=== PATIENT | female | born 1955 | race Caucasian/White ===

== ENCOUNTER 2025-07-20 14:52 | Emergency (ER) | payer MEDICARE, MEDICAID, SELFPAY ==
[2025-07-20 15:02] VITALS: BP 154/89; PULSE 92; RESP 16; TEMP 36.2; O2SAT 98; BMI 30.8
[2025-07-20 15:05] VITALS: BP 154/89; PULSE 92; RESP 16; TEMP 36.2; O2SAT 98
--- NOTE | 2025-07-20 15:14 | ED_ITS ---
HPI - Abdominal Pain General Chief Complaint: Abdominal Pain Stated Complaint: ABD PAIN, BLOOD IN STOOL, D URINATING Time Seen by Provider: 07/20/25 14:58 Source: patient Mode of arrival: EMS Limitations: no limitations History of Present Illness ED Provider: HPI narrative: 69-year-old woman presenting from [facility] on multiple antipsychotic medications presenting with a urinary retention, also had bleeding from a hemorrhoid earlier today. States urinary retention started yesterday she was a we will to move her bladder earlier in the morning but then had more difficulty urinating no when she presented her bladder scan revealed retention to approximately 900 cc. Prior to that has had no dysuria fevers or chills. Related Data Allergies Allergy/AdvReac Type Severity Reaction Status Date / Time aspirin (ASA) Allergy Hives Verified 07/20/25 15:04 codeine Allergy Hives Verified 07/20/25 15:04 Review of Systems Constitutional: Reports as per HPI [facility] Social History Social History Smoked in Last 30 Days: No Use of substances other than those prescribed or required for medical reasons: No Advance Directives: No Advance Directives Information Provided: No Physical Exam ED Exam Exam: ?General: ??looks age appropriate ?CV: S1S2 ?Resp: ?No wheezing rales rhonchi no stridor moving air well Abd: ?Bowel sounds are present suprapubic distention MSK: FROM, strength 5/5 all extremities Skin: Warm, dry, intact, ?Neuro: ?Alert and oriented x3, moving upper and lower extremities symmetrically, no obvious facial asymmetry noted, cranial nerves 2-12 intact Vital Signs: Vital Signs - 24 hr 07/20/25 15:02 07/20/25 15:05 Temperature 97.2 F 97.2 F Pulse Rate 92 92 Respiratory Rate 16 16 Blood Pressure 154/89 H 154/89 H Pulse Oximetry 98 98 Oxygen Delivery Method Room Air Room Air BMI result Body Mass Index 30.8 Course Reevaluation(s) Reevaluation #1: Eric: This patient was signed out to me by the previous emergency physician. The patient is a 69-year-old woman who presents to the emergency room with the inability to empty her bladder. She was found to have urinary retention with 900 mL in her bladder. She was given a urinary catheter. The etiology for her urinary retention is most likely related to new psychiatric medications that has been started. She is currently staying at a [facility] respite facility for about 9 or 10 days. Apparently they started her on new psychiatric medications including olanzapine, haloperidol, and hydroxyzine. All of these medications could potentially predispose a person to urinary retention. Labs were done that show no sign of infection and no sign of kidney injury. The original plan has been to send the patient with a catheter in place but the patient does not wish to returned to this facility with a catheter in place. Additionally the patient feels that she has had a lot of discomfort with stooling and that she feels she is having an exacerbation of problems with hemorrhoids and she wanted to have her hemorrhoids examined. I examined the patient and she has several old hemorrhoids no obvious new acute hemorrhoids. The patient seems to have a somewhat hypertrophic anal sphincter. She did not have any significant tenderness. I do not think there is a acute hemorrhoid present I also do not think there is any perianal abscess present. I was able to do a digital rectal exam. The anal sphincters seems on the whole fairly thickened and hypertrophic and seems somewhat unusual to me. However I do not see any indication for acute intervention. I do not feel any masses within the rectal vault itself. Therefore ultimately the patient will be discharged to returned to her [facility] respite facility. Her discharge instructions indicate that her psychiatric medications should be reduced or eliminated to help restore normal bladder function. Additionally she will be referred to Urology for her urinary retention and General surgery for her hemorrhoidal/anal complaints. Time: 20:39 Medical Decision Making Medical Decision Making [facility] Narrative: 3:24 PM 07/20/2025 (Dr. Boby Edwards): Retaining urine we will need Quintana catheter placed, retention can be due to either infectious etiology or if urinalysis is negative for infection she is on olanzapine, Haldol, hydroxyzine all these medications can cause urinary retention, we will evaluate for electrolyte derangements, and AJ Differential Diagnosis Differential Diagnoses: The differential diagnosis associated with the presentation includes Admission/Observation Consideration of admission/observation: Escalation of care including admission/observation considered Lab Data [facility] Lab Attestation statement: I reviewed the patient's lab results. 07/20/25 15:28 07/20/25 15:28 Labs: Lab Results 07/20/25 07/20/25 Range/Units 15:17 15:28 WBC 9.8 (4.8-10.8) X10*3/uL RBC 5.13 (4.20-5.50) X10*6/uL Hgb 14.2 (12.0-16.0) g/dl Hct 43.7 (37.0-47.0) % MCV 85.2 (80.0-98.0) fL MCH 27.7 (27.0-33.0) pg MCHC 32.5 (31.0-35.0) g/dl RDW 12.7 (11.0-16.0) % Plt Count 184 (160-400) X10*3/uL MPV 9.2 L (9.4-12.3) fL Immature Gran % (Auto) 0.4 (0.0-0.4) % Neut % (Auto) 71.7 (45-73) % Lymph % (Auto) 21.4 (20-40) % Payette % (Auto) 5.0 (2-11) % Eos % (Auto) 1.1 (0-4) % Baso % (Auto) 0.4 (0-2) % Lymph # (Auto) 2.1 (1.2-4.9) X10*3/uL Payette # (Auto) 0.5 (0.1-1.2) X10*3/uL Eos # (Auto) 0.1 (0.0-0.4) X10*3/uL Baso # (Auto) 0.0 (0.0-0.2) X10*3/uL Abs Immat Gran (auto) 0.04 H (0.00-0.03) X10*3/uL Absolute Neuts (auto) 7.0 (2.0-8.3) x10*3/uL Absolute Nucleated RBC 0.000 (0.0-0.012) X10*3/uL Nucleated RBC % (auto) 0.0 (0.0-0.2) /100WBC Sodium 142 (135-145) mmol/L Potassium 4.5 (3.3-5.1) mmol/L Chloride 109 H (96-108) mmol/L Carbon Dioxide 26 (22-29) mmol/L Anion Gap 12 (12-20) BUN 14 (9-16) mg/dL Creatinine 1.12 (0.5-1.4) mg/dL Estim Creat Clear Calc 46.0 Estimated GFR 48 Random Glucose 128 H (60-115) mg/dL Calcium 9.4 (8.4-10.2) mg/dL Total Bilirubin 0.6 (0.0-1.0) mg/dL AST 23 (5-31) U/L ALT 26 (0-31) U/L Alkaline Phosphatase 85 (39-117) U/L Total Protein 6.9 (6.5-8.0) g/dL Albumin 4.7 (3.5-5.0) g/dL Urine Color Yellow Urine Appearance Clear Urine pH 5.5 (5.0-9.0) Ur Specific Crapo 1.010 (1.005-1.025) Urine Protein Negative (Neg-Trace) mg/dL Urine Glucose (UA) Negative (Negative) mg/dL Urine Ketones Trace (Negative) mg/dL Urine Blood Negative (Negative) Urine Nitrite Negative (Negative) Ur Leukocyte Esterase Negative (Negative) Discharge Plan Discharge Clinical Impression: Acute urinary retention, Hemorrhoids Patient Disposition: Home, Self-Care Instructions: Quintana Catheter Placement and Care (ED) Additional Instructions: You were found to be in urinary retention today. We suspect that this is probably a result of the medications you have recently been started on. These medications include hydroxyzine, haloperidol, and olanzapine. At this point our recommendation is that the medications be reduced or eliminated in hopes of restoring normal urinary function. Her bladder was drained but she does not wish to go to the facility with a urinary catheter in place. Her blood work is reassuring no kidney injury and no evidence for urinary tract infection Please follow up with the General surgery office for concern about hemorrhoids and also the urology office for further consideration of the urinary retention. Return to the emergency room if significantly worse. Referrals: [facility] General Surgeons [Provider Group, General Surgery] [facility] Urology Services [Provider Group, Urology] [facility] [Provider Group] [facility] [Outside] Print Language: Cuban
[2025-07-20 15:24] LABS: Appearance Urine Clear; Glucose Urine UA Negative (Negative); PH 5.5 (5.0-9.0); Specific Gravity - Urine 1.010 (1.005-1.025)
[2025-07-20 15:32] LABS: MANUAL DIFF FLAG NO
[2025-07-20 15:38] LABS: Hematocrit 43.7 % (37.0-47.0); Hemoglobin 14.2 g/dl (12.0-16.0); Imm Gran Abs Auto 0.04 X10*3/uL (0.00-0.03); Imm Gran Pct Auto 0.4 % (0.0-0.4); Lymphocytes Absolute Auto 2.1 X10*3/uL (1.2-4.9); Mean Corpuscular HGB Conc 32.5 g/dl (31.0-35.0); Mean Corpuscular Hemoglobin 27.7 pg (27.0-33.0); Mean Corpuscular Volume 85.2 fL (80.0-98.0); NRBC Abs Auto 0.000 X10*3/uL (0.0-0.012); NRBC Pct Auto 0.0 /100WBC (0.0-0.2); Platelet Count 184 X10*3/uL (160-400); Red Blood Count 5.13 X10*6/uL (4.20-5.50); White Blood Count 9.8 X10*3/uL (4.8-10.8)
[2025-07-20 15:51] LABS: Alanine Aminotransferase 26 U/L (0-31); Albumin Level 4.7 g/dL (3.5-5.0); Alkaline Phosphatase 85 U/L (39-117); Anion Gap 12 (12-20); Aspartate Amino Transferase 23 U/L (5-31); Blood Urea Nitrogen 14 mg/dL (9-16); Calcium 9.4 mg/dL (8.4-10.2); Carbon Dioxide 26 mmol/L (22-29); Chloride 109 mmol/L (96-108); Creatinine Clr Calc Pharmacy 46.0; Estimated Glomerular Filt Rate 48; Potassium 4.5 mmol/L (3.3-5.1); Sodium 142 mmol/L (135-145); Total Protein 6.9 g/dL (6.5-8.0)
--- NOTE | 2025-07-20 16:18 | MHC.EDTECH ---
1000mL of light yellow urine emptied from hicks cath, RN aware
--- NOTE | 2025-07-20 20:34 | PC.NURSE ---
FC removed at this time. 600ml in bag at time of removal. [facility] contacted at this time. pt to be DC'd. usp to arrange UBER
[2025-07-20 20:39] VITALS: BP 154/89; PULSE 92; RESP 16; TEMP 36.2; O2SAT 98
== END 2025-07-20 21:04 | disposition home or self-care (01) ==
PROVIDERS: Emergency Medicine; Emergency Provider Emergency Medicine
DX: R33.9 Retention of urine, unspecified (principal); K64.9 Unspecified hemorrhoids
CPT/HCPCS: 36415; 51702; 80053; 81003; 85025; 99283; 99285